=== PATIENT | female | born 1975 | race Caucasian/White ===

== ENCOUNTER 2017-02-13 11:43 | Outpatient (CLI) | payer OTHER ==
[2013-05-30 22:25] VITALS: BP 157/95
[2017-02-13 11:59] LABS: BASOPHILS % 0.6 (0.0-1.5); EOSINOPHILS % 3.4 % (0.0-6.8); MEAN CORPUSCULAR HEMOGLOBIN 29.4 pg (28.0-34.0); MEAN CORPUSCULAR VOLUME 88.7 fl (80.0-100.0); MONOCYTES % 3.6 % (0.0-11.0); NEUTROPHILS # 5.4 # k/uL (1.4-7.7)
[2017-02-13 12:22] LABS: eGFR (African) > 60; eGFR (Non-African) > 60
== END 2017-02-13 14:06 ==
LOC: LAB 11:43
PROVIDERS: ATTEND Physician Assistant
DX: Z00.00 Encounter for general adult medical examination without abnormal findings (principal); R53.83 Other fatigue
CPT/HCPCS: 36415; 80053; 82306; 84443; 85025; 88148; G0143